=== PATIENT | male | born 1935 | race Caucasian/White ===

== ENCOUNTER 2017-04-14 00:07 | Emergency (ER) | payer MEDICARE, OTHER ==
[~2017-04-14] VITALS: Ht 185.4 cm; Wt 77.1 kg
[~2017-04-14 00:07] MED LIST: ACE3 PO; ACET-3017 PO; ALP1 PO; ALP5; ALPR-448 PO; AMOX-362 PO; ASP325 PO; ASPI-757 PO; ASPI81TA94 PO; ATE50 PO; ATEN-65 PO; AUG875 PO; AZIT-17 PO; BAC10 PO; BACL-1 PO; BACL-51; BACL-51 PO; CARB-83 PO; CEP500 PO; CEPH500T7 PO; CLI150 PO; DICL100G39 TOP; DOCU-416 PO; DULO60CA51 PO; FLU IM; FLU10 PO; FLU20 PO; FLU45SYR17 IM; FLU45SYR25 IM ONLY; FLUO-202 PO; FLUT16SP19 NS; GAB100 PO; GABA-547 PO; GABEPENTIN; HYDR-317 PEG; HYDR-4309 PO; HYDR1CAP PO; HYDR2TAB4 PO; HYDR2TAB42 PO; IBU600 PO; KET10 PO; LOR5/325 PO; OXYC1CAP42 PO; OXYGEN INH; OXYGENHOME INH; PAN40 PO; PANT40TA65 PO; PER PO; PNEU0.5D3 IM; PRE10 PO; PRED-314 PO; RIVA10TA PO; RIVA20TA PO; ZOL5; ZOL5 PO; ZOLP-358 PO; [UNRECOGNIZED DRUG - OTHER]; [UNRECOGNIZED DRUG - OTHER] AD
[2017-04-14] MEDS ORDERED: DICYCLOMINE HCL 10 MG CAP PO ONE (00:35)
[2017-04-14 01:07] LABS: PLATELET COUNT, AUTOMATED 155 K/uL (150-450)
--- NOTE | 2017-04-14 01:50 | RADIOLOGY IMAGING REPORT ---
[facility] PATIENT NAME: Stanton Wells : 1935 MR: [id number] V: [id number] EXAM DATE: ORDERING PHYSICIAN: OCTAVIANO FITZGERALD TECHNOLOGIST: Location: [facility] [place] Patient: Stanton Wells : 1935 Visit/Account:[id number] Date of Sevice: 04/14/2017 ACUTE ABDOMEN SERIES 3 VIEW HISTORY: Left upper quadrant abdominal pain. History of constipation. Has been constipated for the pa st 2 days. COMPARISON: 11/11/2015 and studies dating to 08/16/2006. TECHNIQUE: PA upright view of the chest, AP supine and AP upright views of the abdomen. Chest: The lungs are clear. There is an implanted cardiac device projecting over the left side of the heart that has an appearance consistent with a leadless pacemaker. The cardiac and mediastinal silho uettes are within normal limits. There is mild calcification of the aortic arch. There is mild degene rative change of the thoracic spine. Abdomen: There are numerous surgical clips in the pelvis, consistent with prostatectomy. The distribu tion of bowel gas is normal, with bowel in all four quadrants as well as centrally. No free air. No d ilated loops of bowel. There is gaseous distention of colon. There is moderate stool in the cecum and proximal ascending colon. There is moderate degenerative change of the spine. IMPRESSION: 1. No acute cardiopulmonary process. 2. Unremarkable bowel gas pattern without obstruction. There is a moderate to large amount of stool i n the cecum and proximal ascending colon. Report Dictated By: Jocelin Gregory at 04/14/2017 1:41 AM Report E-Signed By: Jocelin Gregory at 04/14/2017 1:45 AM WSN:[id number]
[2017-04-14] MEDS ORDERED: TAMS0.4C25 PO (02:17)
[2017-04-14] MEDS ORDERED: DICY-42 PO (02:17)
--- NOTE | 2017-04-14 02:18 | ER Report ---
History and Physical Time Seen By MD: 00:05 Hx. of Stated Complaint: PT SEEN ON FOR UTI. THAT IS BETTER BUT HE IS NOW HAVING LEFT LOWER QUAD PAIN. STARTED ABOUT 1999. FEELS LIKE GAS OR CONSTIPATION. HPI/ROS CHIEF COMPLAINT: Abdominal pain, constipation HISTORY OF PRESENT ILLNESS: 81-year-old recently treated here for hematuria and suspected UTI CT at last visit presents with left midabdominal pain just adjacent to the umbilicus nonmigrating nonradiating crampy in nature and started tonight just a few hours prior to arrival. No vomiting. No diarrhea. Last bowel movement was yesterday and some small hard stools. No bloody stools or black stools. No fevers chills nausea or vomiting.. REVIEW OF SYSTEMS: Respiratory: No cough, no dyspnea. Cardiovascular: No chest pain, no palpitations. Gastrointestinal: No vomiting, no abdominal pain. Musculoskeletal: No back pain. Allergies: Coded Allergies: No Known Drug Allergies (Verified , 04/14/17) Home Meds Active Scripts Cephalexin 500 Mg Tab (KEFLEX 500 MG TAB) 500 Mg Tablet, 500 MG PO Q6H, #28 TAB 0 Refills TAKE ONE TABLET BY MOUTH EVERY SIX HOURS Prov:FABRICE MAC MD 04/10/17 Fluticasone Prop 50 Mcg Ns (FLONASE 50 MCG NS) 16 Gm [place].susp, 2 SPRAYS NS QDAY, #1 BOT 6 Refills Prov:ROBIN SOLIS MD 03/15/17 Pantoprazole Sodium (PANTOPRAZOLE SODIUM) 40 Mg Tablet.dr, 1 TAB PO QDAY, #30 TAB.SR 1 Refill Prov:ROBIN SOLIS MD 03/07/17 Fluoxetine Hcl (PROZAC) 20 Mg Capsule, 1 TAB PO QDAY, #90 CAPSULE 3 Refills Prov:ROBIN SOLIS MD 02/09/16 Reported Medications Docusate Sodium (COLACE) 100 Mg Capsule, 100 MG PO PRN, CAPSULE 02/26/16 Oxygen (OXYGEN) Inha, 2 L INH HS, L 01/14/15 Baclofen (BACLOFEN) 20 Mg Tablet, 1 TAB PO Q6H Y for trigeminal neuralgia pain, #15 TAB 01/14/15 Carbamazepine (TEGRETOL XR) 200 Mg Tab.er.12h, 1 TAB PO TID 01/16/14 Gabapentin (GABAPENTIN) 100 Mg Capsule, 600 MG PO TID, CAPSULE 01/16/14 Discontinued Reported Medications Rivaroxaban 10 MG (Xarelto 10 MG) Unknown Strength Tablet, 20 MG PO QDAY 11/29/16 Hydrocodone Bit/Acetaminophen (NORCO 5-325 TABLET) 1 Each Tablet, 1-2 TAB PO Q4- 6H Y for PAIN, #45 TAB 04/12/16 Alprazolam 0.5 Mg Tab (ALPRAZOLAM 0.5 MG TAB) 0.5 Mg Tablet, 1 TAB PO BID Y for anxiety, TAB 01/16/14 Discontinued Scripts Diclofenac Sodium 1% Gel (VOLTAREN 1% GEL) 100 Gm Gel..gram., 2 G TOP QID Y for PAIN, #1 TUBE 0 Refills Prov:AMBER ROYAL APRN [employer]AKER TENDER-C 11/07/14 Hx Smoking: Yes Smoking Status: Former Smoker Exposure to Second Hand Smoke?: No Hx Substance Use Disorder: No Hx Alcohol Use: No Constitutional Vital Sign - Last 24 Hours 04/14/17 04/14/17 04/14/17 04/14/17 00:13 00:15 00:45 00:52 Temp 98.8 Pulse 65 61 62 Resp 14 B/P (MAP) 154/76 137/75 (95) Pulse Ox 77 85 97 O2 Delivery Room Air 04/14/17 04/14/17 04/14/17 01:20 01:30 01:49 Pulse 63 Resp 16 B/P (MAP) 138/84 (102) 139/80 (99) 139/80 (99) Pulse Ox 93 O2 Delivery Nasal Cannula O2 Flow Rate 2 Physical Exam General Appearance: The patient is alert, has no immediate need for airway protection and no signs of toxicity. No acute distress Eyes: Pupils equal and round no pallor or injection. ENT, Mouth: Mucous membranes are moist. Respiratory: There are no retractions, lungs are clear to auscultation. Cardiovascular: Regular rate and rhythm. No murmurs gallops or rubs Gastrointestinal: Abdomen is soft and non tender, no masses, bowel sounds normal. Neurological: Gross normal neuro exam Skin: Warm and dry, no rashes. Musculoskeletal: Neck is supple non tender. Extremities are nontender, nonswollen and have full range of motion. No edema DIFFERENTIAL DIAGNOSIS: After history and physical exam differential diagnosis was considered for constipation, stool Berdan, fecal impaction, kidney stone, bladder infection, kidney infection, no signs of sepsis Medical Decision Making Data Points Result Diagram: 04/14/173904/14/1739 Laboratory Hematology Test 04/14/17 00:40 Red Blood Count 4.19 M/uL (4.00-5.60) Mean Corpuscular Volume 98.6 fL (80.0-96.0) Mean Corpuscular Hemoglobin 34.6 pg (26.0-33.0) Mean Corpuscular Hemoglobin Concent 35.1 g/dL (32.0-36.0) Red Cell Distribution Width 14.3 % (11.5-14.5) Mean Platelet Volume 7.2 fL (7.2-11.1) Neutrophils (%) (Auto) 79.5 % (39.4-72.5) Lymphocytes (%) (Auto) 12.6 % (17.6-49.6) Monocytes (%) (Auto) 6.6 % (4.1-12.4) Eosinophils (%) (Auto) 0.7 % (0.4-6.7) Basophils (%) (Auto) 0.6 % (0.3-1.4) Nucleated RBC Relative Count (auto) 0.1 /100WBC Neutrophils # (Auto) 3.4 K/uL (2.0-7.4) Lymphocytes # (Auto) 0.5 K/uL (1.3-3.6) Monocytes # (Auto) 0.3 K/uL (0.3-1.0) Eosinophils # (Auto) 0.0 K/uL (0.0-0.5) Basophils # (Auto) 0.0 K/uL (0.0-0.1) Nucleated RBC Absolute Count (auto) 0.00 K/uL Urine Color Red Urine Clarity Clear Urine pH 6.0 pH (4.8-9.5) Urine Specific [place] 1.005 Urine Protein 100 mg/dL (NEGATIVE) Urine Glucose (UA) 50 mg/dL (NEGATIVE) Urine Ketones Negative mg/dL (NEGATIVE) Urine Blood Large (NEGATIVE) Urine Nitrite Negative (NEGATIVE) Urine Bilirubin Negative (NEGATIVE) Urine Urobilinogen Negative mg/dL (0.2-1.9) Urine Leukocyte Esterase Negative (NEGATIVE) Urine RBC 62 /HPF (0-2/HPF) Urine WBC 6 /HPF (0-5/HPF) Urine Squamous Epithelial Cells None /LPF (</=FEW) Urine Bacteria Few /HPF (NONE-FEW) Urine Mucus None /HPF (NONE-FEW) Sodium Level 137 mmol/L (137-145) Potassium Level 3.7 mmol/L (3.5-5.0) Chloride Level 100 mmol/L (98-107) Carbon Dioxide Level 30 mmol/L (22-30) Blood Urea Nitrogen 20 mg/dl (9-21) Creatinine 0.90 mg/dl (0.66-1.25) Glomerular Filtration Rate Calc > 60.0 Random Glucose 100 mg/dl (75-110) Calcium Level 8.3 mg/dl (8.4-10.2) Total Bilirubin 0.6 mg/dl (0.2-1.3) Aspartate Amino Transf (AST/SGOT) 26 U/L (0-35) Alanine Aminotransferase (ALT/SGPT) 31 U/L (0-56) Alkaline Phosphatase 90 U/L (0-126) Total Protein 6.3 gm/dl (6.3-8.2) Albumin 3.6 g/dl (3.5-5.0) Lipase 111 U/L (23-300) Chemistry Test 04/14/17 00:40 White Blood Count 4.3 k/uL (4.5-11.0) Red Blood Count 4.19 M/uL (4.00-5.60) Hemoglobin 14.5 g/dL (14.0-18.0) Hematocrit 41.3 % (42.0-52.0) Mean Corpuscular Volume 98.6 fL (80.0-96.0) Mean Corpuscular Hemoglobin 34.6 pg (26.0-33.0) Mean Corpuscular Hemoglobin Concent 35.1 g/dL (32.0-36.0) Red Cell Distribution Width 14.3 % (11.5-14.5) Platelet Count 155 K/uL (150-450) Mean Platelet Volume 7.2 fL (7.2-11.1) Neutrophils (%) (Auto) 79.5 % (39.4-72.5) Lymphocytes (%) (Auto) 12.6 % (17.6-49.6) Monocytes (%) (Auto) 6.6 % (4.1-12.4) Eosinophils (%) (Auto) 0.7 % (0.4-6.7) Basophils (%) (Auto) 0.6 % (0.3-1.4) Nucleated RBC Relative Count (auto) 0.1 /100WBC Neutrophils # (Auto) 3.4 K/uL (2.0-7.4) Lymphocytes # (Auto) 0.5 K/uL (1.3-3.6) Monocytes # (Auto) 0.3 K/uL (0.3-1.0) Eosinophils # (Auto) 0.0 K/uL (0.0-0.5) Basophils # (Auto) 0.0 K/uL (0.0-0.1) Nucleated RBC Absolute Count (auto) 0.00 K/uL Urine Color Red Urine Clarity Clear Urine pH 6.0 pH (4.8-9.5) Urine Specific [place] 1.005 Urine Protein 100 mg/dL (NEGATIVE) Urine Glucose (UA) 50 mg/dL (NEGATIVE) Urine Ketones Negative mg/dL (NEGATIVE) Urine Blood Large (NEGATIVE) Urine Nitrite Negative (NEGATIVE) Urine Bilirubin Negative (NEGATIVE) Urine Urobilinogen Negative mg/dL (0.2-1.9) Urine Leukocyte Esterase Negative (NEGATIVE) Urine RBC 62 /HPF (0-2/HPF) Urine WBC 6 /HPF (0-5/HPF) Urine Squamous Epithelial Cells None /LPF (</=FEW) Urine Bacteria Few /HPF (NONE-FEW) Urine Mucus None /HPF (NONE-FEW) Glomerular Filtration Rate Calc > 60.0 Calcium Level 8.3 mg/dl (8.4-10.2) Total Bilirubin 0.6 mg/dl (0.2-1.3) Aspartate Amino Transf (AST/SGOT) 26 U/L (0-35) Alanine Aminotransferase (ALT/SGPT) 31 U/L (0-56) Alkaline Phosphatase 90 U/L (0-126) Total Protein 6.3 gm/dl (6.3-8.2) Albumin 3.6 g/dl (3.5-5.0) Lipase 111 U/L (23-300) Urinalysis Test 04/14/17 00:40 Urine Color Red Urine Clarity Clear Urine pH 6.0 pH (4.8-9.5) Urine Specific [place] 1.005 Urine Protein 100 mg/dL (NEGATIVE) Urine Glucose (UA) 50 mg/dL (NEGATIVE) Urine Ketones Negative mg/dL (NEGATIVE) Urine Blood Large (NEGATIVE) Urine Nitrite Negative (NEGATIVE) Urine Bilirubin Negative (NEGATIVE) Urine Urobilinogen Negative mg/dL (0.2-1.9) Urine Leukocyte Esterase Negative (NEGATIVE) Urine RBC 62 /HPF (0-2/HPF) Urine WBC 6 /HPF (0-5/HPF) Urine Squamous Epithelial Cells None /LPF (</=FEW) Urine Bacteria Few /HPF (NONE-FEW) Urine Mucus None /HPF (NONE-FEW) ED Course/Re-evaluation ED Course Previous CT scan report reviewed and 5 mm renal stone was seen. This was discussed with the patient who was unaware. I think this accounts for the continued blood in his urine. Stone not seen on KUB. KUB negative for obstruction. Dilated loops consistent with mild ileus this was discussed with the patient's who agrees to continue a bowel regimen limit narcotic use which he did not for 15 years and follow-up with urologist for further care if the necessary rise primary care physician. Bentyl improved his pain here. He is going to use docusate sodium and Senokot fibrinous diarrhea and good hydration to prevent ongoing constipation. Decision to Disposition Date: Apr 14, 2017 Decision to Disposition Time: 02:14 Depart Departure Latest Vital Signs Vital Signs Date Time Temp Pulse Resp B/P (MAP) Pulse Ox O2 Delivery O2 Flow Rate FiO2 04/14/17 01:49 63 16 139/80 (99) 93 Nasal Cannula 2 04/14/17 00:13 98.8 Impression: Primary Impression: Renal stone Additional Impression: Constipation Condition: Improved Disposition: HOME OR SELF-CARE Referrals: ROBIN SOLIS MD (PCP) New Scripts Tamsulosin Hcl (FLOMAX) 0.4 Mg Cap.er.24h 0.4 MG PO QDAY, #14 CAP 0 Refills Prov: OCTAVIANO FITZGERALD MD 04/14/17 Dicyclomine Hcl (BENTYL) 10 Mg Capsule 20 MG PO QID Y for cramps for 10 Days, #30 CAPSULE Prov: OCTAVIANO FITZGERALD MD 04/14/17 Problem Qualifiers Additional Impression: Constipation Constipation type: drug induced constipation Qualified Codes: K59.03 - Drug induced constipation OCTAVIANO FITZGERALD MD Apr 14, 2017 02:18
[2017-04-14 02:34] VITALS: BP 128/88
== END 2017-04-14 02:49 | disposition home or self-care (01) ==
LOC: ER 00:15
DX: N20.0 Calculus of kidney (principal); K59.03 Drug induced constipation
CPT/HCPCS: 74022; 81001; 83690; 85025; 87088; 99284; A9270; 82040; 82247; 82310; 82374; 82435; 82565; 82947; 84075; 84132; 84155; 84295; 84450; 84460; 84520

== ENCOUNTER → 2017-04-19 | Outpatient (CLI) | payer MEDICARE, OTHER ==
[~2017-04-19] MED LIST changes: +DICY-42 PO; +IOPAMIDOL 76% 50 ML INFUS BTL 50 ML ONE; +IOPAMIDOL 76% 75 ML INFUS BTL 75 ML ONE; +NS 0.9% 50 ML VIAL 50 ML ONE; +TAMS0.4C25 PO
--- NOTE | 2017-04-19 16:58 | RADIOLOGY IMAGING REPORT ---
FACILITY: [facility] - [place], [place] PATIENT NAME: Stanton Wells : 1935 MR: [id number] V: [id number] EXAM DATE: ORDERING PHYSICIAN: ANJUM CHIN TECHNOLOGIST: [facility] Patient: Stanton Wells : 1935 Visit/Account:[id number] Date of Sevice: 04/19/2017 ABDOMEN/PELVIS W/WO CONTRAST HISTORY: Hematuria, stones, history of prostate cancer TECHNIQUE: Axial images acquired through the abdomen/pelvis both with and without IV contrast.. Arcadio nal and sagittal reformatting also performed. Dose Lowering Technique One of the following dose optimization techniques was utilized in the performance of this exam: Autom ated exposure control; adjustment of the mA and/or kV according to the patient's size; or use of an i terative reconstruction technique. Specific details can be referenced in the facility's radiology C T exam operational policy. CONTRAST: 125 mL Isovue-370 COMPARISON: April 10, 2017 FINDINGS: Visualized lung bases: There are calcified granulomas in the right lower lobe Hepatobiliary: There are multiple tiny hypodensities seen in the liver which may represent cysts alt katherin are too small to characterize. . Tiny gallstones noted within the gallbladder although no patrick dence of biliary ductal dilatation Spleen: Calcified granulomas Adrenals: There is mild thickening of the left adrenal gland similar to the prior study. Pancreas: Negative. Kidneys ureters and bladder: Tiny hypodensities in both kidneys are too small to characterize. There is a 1 mm calcification lower pole of the right kidney. There is a 2 mm calcination lower pole rené x of the left kidney and a 5 mm calcination upper pole calyx of the left kidney. No evidence of hydr onephrosis or hydroureter ureters are not completely opacified with contrast although no definite les ions are identified. The bladder is partially decompressed and not ideally evaluated. There appears to be marked irregular trabeculation of the bladder wall. Genitalia: There appears to been a prostatectomy. GI: Negative. Vessels/spaces/nodes: Mild to moderate vascular calcifications are present Bones/soft tissues: No aggressive appearing bone lesions are seen. There are extensive spondylotic changes lumbar spine. Additional findings: None pertinent. IMPRESSION: There are nonobstructing calculi seen in both renal collecting systems The bladder is partially decompressed and not ideally evaluated although there appears to be marked i rregular trabeculation of the bladder wall. Evidence for prior granulomatous process Cholelithiasis although no evidence for ductal dilatation Tiny hypodensities in the liver and both kidneys may represent cysts although are too small to charac terize Report Dictated By: Maritza Holder MD at 04/19/2017 4:32 PM Report E-Signed By: Maritza Holder MD at 04/19/2017 4:53 PM WSN:[email or web address]
== END ==
LOC: CT 10:06
PROVIDERS: ATTEND Urology
DX: N20.0 Calculus of kidney (principal); K80.80 Other cholelithiasis without obstruction; R93.2 Abnormal findings on diagnostic imaging of liver and biliary tract
CPT/HCPCS: J7050; Q9967; 74178

== ENCOUNTER → 2017-05-02 | Outpatient (CLI) | payer MEDICARE, OTHER ==
[~2017-05-02] MED LIST changes: +ALPR-429 PO; +DICY10AM2 IM; -IOPAMIDOL 76% 50 ML INFUS BTL 50 ML ONE; -IOPAMIDOL 76% 75 ML INFUS BTL 75 ML ONE; -NS 0.9% 50 ML VIAL 50 ML ONE; +ZOLP-350 PO
== END ==
LOC: RESP 16:23
PROVIDERS: ATTEND Internal Medicine
DX: Z02.9 Encounter for administrative examinations, unspecified (principal)

== ENCOUNTER 2017-05-04 00:23 | Day surgery (SDC) | payer MEDICARE, OTHER ==
--- NOTE | 2017-05-02 16:27 | EKG ---
FACILITY: [facility] PATIENT NAME: CARMEN PERRY : [id number] MR: [id number] V: [id number] EXAM DATE: ORDERING PHYSICIAN: ROBIN SOLIS TECHNOLOGIST: VENKATESH Test Reason : PREOP Blood Pressure : / mmHG Vent. Rate : 079 BPM Atrial Rate : 055 BPM P-R Int : 184 ms QRS Dur : 100 ms QT Int : 438 ms P-R-T Axes : 065 -53 059 degrees QTc Int : 502 ms Sinus bradycardia with frequent premature ventricular complexes Left axis deviation Nonspecific ST and T wave abnormality Prolonged QT Abnormal ECG No previous ECGs available Referred By: Confirmed By:
--- NOTE | 2017-05-03 18:56 | HISTORY AND PHYSICAL ---
DATE OF ADMISSION: May 04, 2017 CHIEF COMPLAINT Kidney stones. HISTORY OF PRESENT ILLNESS Patient is an 82-year-old white male who had an episode of gross painless hematuria on April 10, 2017. Evaluation with a CT urogram revealed three left kidney stones, the largest measuring 5 x 3. Office cystoscopy performed was normal. The patient's episode of hematuria was only once and resolved after the patient stopped his Xarelto. He has had no further episodes of gross hematuria and his urinalysis has been normal microscopically since that time. His kidney stones were discussed with options of watch-waiting versus treatment and the patient elected to undergo extracorporeal shock wave lithotripsy with possible ureteroscopy as indicated. PAST MEDICAL HISTORY * AFib. * Prostate cancer with currently no evidence of disease. * Hypertension. * Sleep apnea. * Pulmonary hypertension. * Polycythemia. * Trigeminal neuralgia. PAST SURGICAL HISTORY * Left knee surgery. * Radical retropubic prostatectomy in 1996. * Tonsillectomy. * Bilateral inguinal hernia. * Laminectomy. ALLERGIES No known drug allergies. CURRENT MEDICATIONS * Flonase. * Pantoprazole. * Prozac. * Xarelto. * Colace. * Oxygen. * Baclofen. * Tegretol. * Gabapentin. SOCIAL HISTORY Patient is retired. He has a remote smoking history. REVIEW OF SYSTEMS Patient denies nausea, vomiting, abdominal pain, change in bowel habits, chest pain, productive cough or fevers, chills. PHYSICAL EXAMINATION GENERAL: Patient is a well-developed, well-nourished white male in no acute distress. HEENT: Normocephalic, atraumatic. CHEST: Clear to auscultation bilaterally. CARDIOVASCULAR: Regular rate and rhythm. ABDOMEN: Soft, nontender. No masses are palpated. GENITOURINARY: Exam is deferred to the OR. EXTREMITIES: Without clubbing, cyanosis or edema. NEUROLOGIC: Exam is nonfocal. IMPRESSION An 82-year-old white male with history of left kidney stones and gross hematuria while on Xarelto. PLAN We will perform left extracorporeal shock wave lithotripsy with possible ureteroscopy. [facility]
[~2017-05-04] VITALS: Ht 185.4 cm; Wt 77.1 kg
[2017-05-04 07:45] VITALS: BP 145/80
[2017-05-04] MEDS ORDERED: ceFAZolin 1 GM VIAL IVP ONE (08:00)
[2017-05-04] MEDS ORDERED: NORMOSOL R SOLN(*) 1000 ML BAG 1,000 ML IV PRN (08:00)
[2017-05-04] MEDS ORDERED: ceFAZolin(*) 1 GM VIAL 1 GM in NS(*) 0.9% 100 ML ADDVANT BAG 100 ML IV ONE (08:00)
[2017-05-04] MEDS ORDERED: MIDAZOLAM 2 MG/2 ML VIAL IVP ONE (08:00)
[2017-05-04] MEDS ORDERED: LIDOCAINE/SOD BICARB 8.4% SYR ID ONE (08:00)
[2017-05-04] MEDS ORDERED: FAMOTIDINE 20 MG TAB PO ONE (08:00)
[2017-05-04 08:05] LABS: INR 1.1
--- NOTE | 2017-05-04 09:38 | RADIOLOGY IMAGING REPORT ---
FACILITY: [facility] - [place] PATIENT NAME: Stanton Wells : 1935 MR: [id number] V: [id number] EXAM DATE: ORDERING PHYSICIAN: ANJUM CHIN TECHNOLOGIST: Location: [facility] Patient: Stanton Wells : 1935 Visit/Account:[id number] Date of Sevice: 05/02/2017 ABDOMEN PELVIS ESWL CYSTO W/O HISTORY: preop order TECHNIQUE: Axial images acquired through the abdomen/pelvis. Coronal and sagittal reformatting also performed. No IV contrast administered. COMPARISON: April 19, 2017 FINDINGS: Visualized lung bases: Negative. Hepatobiliary: Tiny hypodensities again seen within the liver although too small to characterize. T his cholelithiasis although no evidence of biliary ductal dilatation. Spleen: Calcified granulomas Adrenals: Negative. Pancreas: Negative. Kidneys ureters and bladder:1 mm calcification lower pole the right kidney may be intraparenchymal. 2 mm calcification lower pole calyx of left kidney again seen.. A 5 mm calcification upper pole adebayo yx of the left kidney also appears unchanged no new renal calculi identified. There is no evidence o f hydronephrosis or hydroureter. Small renal hypodensities again noted bilaterally although too smal l to characterize. Genitalia: There appears to been a prostatectomy GI: Negative. Vessels/spaces/nodes: Mild to moderate vascular calcifications Bones/soft tissues: Extensive spondylotic changes lumbar spine. No aggressive appearing bone lesion s are seen. Additional findings: None pertinent. IMPRESSION: There is nonobstructing bilateral nephrolithiasis Evidence for prior cranium is process Cholelithiasis although no evidence of biliary ductal dilatation Tiny hypodensities in the liver and kidneys are too small to characterize Report Dictated By: Maritza Holder MD at 05/04/2017 8:53 AM Report E-Signed By: Maritza Holder MD at 05/04/2017 9:33 AM WSN:[email or web address]
[2017-05-04] MEDS ORDERED: fentaNYL CITR 100 MCG/2 ML AMP ONE (09:59)
[2017-05-04] MEDS ORDERED: ONDANSETRON 4 MG/2 ML VIAL ONE (10:21)
[2017-05-04] MEDS ORDERED: DEXAMETHASONE SOD PHOS 10MG/ML ONE (10:21)
[2017-05-04] MEDS ORDERED: PROPOFOL EMUL(*) 10MG/ML 20 ML 20 ML ONE (10:21)
[2017-05-04] MEDS ORDERED: GLYCOPYRROLATE 0.2 MG/ML SDV ONE (10:21)
[2017-05-04] MEDS ORDERED: TAMS0.4C25 PO (10:50)
[2017-05-04] MEDS ORDERED: HYDR-4309 PO (10:51)
[2017-05-04] MEDS ORDERED: DOCU-416 PO (10:51)
--- NOTE | 2017-05-04 15:57 | OPERATIVE REPORT 1 ---
EVENT DATE: May 04, 2017 SURGEON: Leo Bishop MD ANESTHESIOLOGIST: Nadeem López MD ANESTHESIA: General anesthetic. PREOPERATIVE DIAGNOSIS Left renal calculi. POSTOPERATIVE DIAGNOSIS Left renal calculi. PROCEDURES PERFORMED 1. Left upper pole extracorporeal shock wave lithotripsy of 6 mm stone. 2. Left lower pole extracorporeal shock wave lithotripsy of 4 mm stone. ESTIMATED BLOOD LOSS Minimal. INTRAVENOUS FLUIDS Crystalloid. DRAINS None. COMPLICATIONS None. CONDITION The patient was taken to the recovery room awake and in stable condition. STATEMENT OF MEDICAL NECESSITY The patient is a 81-year-old white gentleman who was noted to have some small kidney stones approximately 10 years ago. He recently had an episode of gross hematuria. On his workup, he was noted to have increasing size of these stones in the left system. He had a 6 mm upper pole stone and a 4 mm lower pole stone. He has opted for urologic intervention with lithotripsy and/or ureteroscopy. CONSENT The specific risks and benefits were discussed including bleeding, infection, damage to adjacent structures, failure to fragment stone completely and/or pass the fragments with need for secondary procedure. The operative consent is signed and on the chart. DESCRIPTION OF OPERATION PERFORMED The patient was brought to the operating room. After general anesthetic was obtained, he was placed supine on the lithotripsy table. Attention was first directed toward the upper pole stone. It was visualized in two-plane fluoroscopy and placed in the lithotripsy crosshairs. Treatment was begun at a power setting of 2 and gradually increased to a power setting of 3 over the first 300 shocks. A three-minute pause was then performed, and then the treatment was resumed. He received a total of 1500 shocks to this 6 mm left upper pole stone. Intermittent two-plane fluoroscopy was used to ensure the crosshairs remained on the stone until a fragment pile throughout treatment. The power was gradually increased to 8.5 over the course of the 1500 shock treatment. Following treatment of the upper pole stone, attention was directed to the lower pole stone. It was also visualized with two-plane fluoroscopy and placed in the lithotripsy crosshairs. Treatment was begun at a power setting of 3.5 and gradually increased to a power setting of 8.5 over the course of 1500 shocks. Again, two-plane intermittent fluoroscopy was used to ensure the crosshairs remained on the stone until a fragment pile. At the conclusion of the treatment, no significant fragments could be identified. He received a total of 3000 shocks to the left kidney. He was awakened in the operating room and taken to the recovery area in stable condition. PLAN The plan will be to allow the patient to be discharged home today on Flomax, [place], and Colace. He is to start the head-down protocol in one to two days. We will plan to see him in the Urology Clinic in approximately eight weeks with a followup low-dose CT as well to evaluate treatment results. The patient is also instructed to restart his Xarelto in 36 hours if his urine remains clear. MTDD
== END 2017-05-04 12:04 | disposition home or self-care (01) ==
LOC: OR 00:23
PROVIDERS: ATTEND Urology
DX: N20.0 Calculus of kidney (principal); I10 Essential (primary) hypertension; Z85.46 Personal history of malignant neoplasm of prostate; G47.33 Obstructive sleep apnea (adult) (pediatric); J44.9 Chronic obstructive pulmonary disease, unspecified; K21.9 Gastro-esophageal reflux disease without esophagitis; I48.2 Chronic atrial fibrillation
CPT/HCPCS: 36415; 50590; 74176; 85610; J0690; J1100; J2250; J2405; J2704; J3010; J3490

== ENCOUNTER → 2017-06-16 | Outpatient (CLI) | payer MEDICARE, OTHER ==
[2017-06-16 12:34] LABS: PLATELET COUNT, AUTOMATED 177 K/uL (150-450)
--- NOTE | 2017-06-16 14:08 | RADIOLOGY IMAGING REPORT ---
FACILITY: [facility] - [place] PATIENT NAME: Stanton Wells : 1935 MR: [id number] V: [id number] EXAM DATE: ORDERING PHYSICIAN: ROBIN SOLIS TECHNOLOGIST: Location: [facility] Patient: Stanton Wells : 1935 Visit/Account:[id number] Date of Sevice: 06/16/2017 Exam type: CHEST PA AND LAT History: Sinusitis, sleep apnea, hypertension Comparison: January 20, 2016. Findings: The lungs are free of acute effusions, infiltrates or edema. The cardiac silhouette is normal in siz e. The trachea is in midline. There is a cardiac monitoring device projecting over the anterior asp ect of the left mid thorax. There are mild spondylotic changes of the thoracic spine. IMPRESSION: 1. No acute cardiopulmonary process is seen Report Dictated By: Maritza Holder MD at 06/16/2017 2:02 PM Report E-Signed By: Maritza Holder MD at 06/16/2017 2:04 PM DONGN:[email or web address]
== END ==
LOC: LAB 11:57
PROVIDERS: ATTEND Internal Medicine
DX: Z95.818 Presence of other cardiac implants and grafts (principal); M47.894 Other spondylosis, thoracic region; J32.9 Chronic sinusitis, unspecified; G47.33 Obstructive sleep apnea (adult) (pediatric); I10 Essential (primary) hypertension
CPT/HCPCS: 36415; 71046; 82040; 82247; 82310; 82374; 82435; 82565; 82947; 84075; 84132; 84155; 84295; 84450; 84460; 84520; 85025

== ENCOUNTER 2017-08-03 00:21 | Day surgery (SDC) | payer MEDICARE, OTHER ==
[~2017-08-03] VITALS: Ht 180.3 cm; Wt 73.0 kg
[2017-08-03] MEDS ORDERED: PROPOFOL EMUL(*) 10MG/ML 20 ML 20 ML ONE ×2 (07:29→09:55)
--- NOTE | 2017-08-03 07:29 | Post Operative Progress Note ---
Post Operative Progress Note Date: Aug 03, 2017 Time: 10:15 Surgeon: sharan Anesthesia: dr ulloa Pre-Op Diagnosis: history of polyps Post-Op Diagnosis: diverticulosis Procedure(s): colonoscopy MANNIE TRAVIS MD Aug 03, 2017 07:29
--- NOTE | 2017-08-03 07:30 | Short(Outpt) Discharge Summary ---
Discharge Summary Reason for Hosp/Final Diag: (1) Encounter for colonoscopy due to history of adenomatous colonic polyps Hospital Course & Plan: sigmoid diverticulosis Departure Discharge to: Home Discharge Instructions Home Meds Active Scripts Pantoprazole Sodium (PANTOPRAZOLE SODIUM) 40 Mg Tablet.dr, 1 TAB PO QDAY, #90 TAB.SR 4 Refills Prov:ROBIN SOLIS MD 06/08/17 Fluticasone Prop 50 Mcg Ns (FLONASE 50 MCG NS) 16 Gm [place].susp, 2 SPRAYS NS QDAY, #1 BOT 6 Refills Prov:ROBIN SOLIS MD 03/15/17 Fluoxetine Hcl (PROZAC) 20 Mg Capsule, 1 TAB PO QDAY, #90 CAPSULE 3 Refills Prov:ROBIN SOLIS MD 02/09/16 Reported Medications Hydrocodone Bit/Acetaminophen (NORCO 5-325 TABLET) 1 Each Tablet, 1-2 EACH PO Q6H Y for PAIN, #20 TAB 05/04/17 Docusate Sodium (COLACE) 100 Mg Capsule, 100 MG PO BID, #30 CAPSULE 05/04/17 Aspirin (ASPIRIN) 81 Mg Tab.chew, 81 MG PO QDAY, TAB.CHEW 05/02/17 Alprazolam (XANAX) 0.5 Mg Tablet, 1 TAB PO BID Y for ANXIETY, TAB 05/02/17 Rivaroxaban 20 Mg (XARELTO 20 MG) 20 Mg Tablet, 20 MG PO QDAY, TAB 05/02/17 Oxygen (OXYGEN) Inha, 2 L INH HS, L 01/14/15 Baclofen (BACLOFEN) 20 Mg Tablet, 1 TAB PO Q6H Y for trigeminal neuralgia pain, #15 TAB 01/14/15 Carbamazepine (TEGRETOL XR) 200 Mg Tab.er.12h, 1 TAB PO TID 01/16/14 Gabapentin (GABAPENTIN) 100 Mg Capsule, 600 MG PO TID, CAPSULE 01/16/14 Discontinued Reported Medications Tamsulosin Hcl (FLOMAX) 0.4 Mg Cap.er.24h, 0.4 MG PO QDAY, #30 CAP 05/04/17 Dicyclomine Hcl (BENTYL) 10 Mg/1 Ml Ampul, 2 G IM QID Y for PAIN 05/02/17 Diet: High Fiber Activity: As Tolerated MANNIE TRAVIS MD Aug 03, 2017 07:30
[2017-08-03] MEDS ORDERED: LIDOCAINE/SOD BICARB 8.4% SYR ID ONE (09:00)
[2017-08-03] MEDS ORDERED: NORMOSOL R SOLN(*) 1000 ML BAG 1,000 ML IV PRN (09:00)
[2017-08-03 09:13] VITALS: BP 158/83
[2017-08-03 10:08] VITALS: BP 110/63
[2017-08-03 10:15] VITALS: BP 110/62
[2017-08-03 10:45] VITALS: BP 133/75
[2017-08-03 10:50] VITALS: BP 114/60
--- NOTE | 2017-08-03 19:28 | OPERATIVE REPORT 1 ---
EVENT DATE: August 03, 2017 SURGEON: Orion Botello MD ANESTHESIOLOGIST: Buck Manrique MD ANESTHESIA: Sedation. PREOPERATIVE DIAGNOSIS Personal history of polyps. POSTOPERATIVE DIAGNOSES 1. Sigmoid diverticulosis. 2. Otherwise normal examination. PROCEDURE PERFORMED Colonoscopy. DESCRIPTION OF PROCEDURE Patient was placed in the left lateral decubitus position and given intravenous sedation. Rectal exam was performed. No palpable masses were noted. Flexible colonoscope was inserted and advanced to the cecum. He had an excellent bowel prep. The ileocecal valve and base of the cecum were identified. Scope was slowly withdrawn. No mucosal abnormalities were noted in the cecum, right colon , or transverse colon. In the sigmoid colon, he had diverticula. No evidence of diverticulitis. Rectum was normal. Scope was retroflexed. That appeared to be normal. The patient tolerated the procedure well. No apparent complications. Patient probably will not need another colonoscopy because of his age. [facility], [place]
== END 2017-08-03 11:30 | disposition home or self-care (01) ==
LOC: OR 00:21
PROVIDERS: ATTEND Surgery
DX: Z12.11 Encounter for screening for malignant neoplasm of colon (principal); K57.30 Diverticulosis of large intestine without perforation or abscess without bleeding; Z86.010 Personal history of colon polyps
CPT/HCPCS: 00812; G0121; J2704

== ENCOUNTER → 2017-08-22 | Outpatient (CLI) | payer MEDICARE, OTHER ==
--- NOTE | 2017-08-22 11:58 | RADIOLOGY IMAGING REPORT ---
FACILITY: [facility] - [place] PATIENT NAME: Stanton Wells : 1935 MR: [id number] V: [id number] EXAM DATE: ORDERING PHYSICIAN: ANJUM CHIN TECHNOLOGIST: Location: [facility] Patient: Stanton Wells : 1935 Visit/Account:[id number] Date of Sevice: 08/22/2017 ABDOMEN PELVIS ESWL CYSTO W/O HISTORY: Kidney stones TECHNIQUE: Axial images acquired through the abdomen/pelvis. Coronal and sagittal reformatting also performed. No IV contrast administered. Dose Lowering Technique One of the following dose optimization techniques was utilized in the performance of this exam: Autom ated exposure control; adjustment of the mA and/or kV according to the patient's size; or use of an i terative reconstruction technique. Specific details can be referenced in the facility's radiology C T exam operational policy. COMPARISON: May 04, 2017 FINDINGS: Visualized lung bases: Small calcified granulomas are identified in the lower lung [place] Hepatobiliary: Cholelithiasis although no evidence of biliary ductal dilatation. Small hypodensitie s again seen within the liver that are too small to characterize. Spleen: Calcified granulomas Adrenals: Negative. Pancreas: Negative. Kidneys ureters and bladder: 1 mm calcification lower pole the right kidney appears unchanged. Previ ously noted 2 mm calcification lower pole of the left kidney now appears to measure 3 mm. The previo us 5 mm calcification upper pole the left kidney is no longer seen. There is no evidence of hydronep hrosis or hydroureter. No definite calculi seen within the ureters although the distal ureters not i deally evaluated small renal hypodensities again noted two small to characterize bladder wall appears moderately thickened slightly increased when compared the prior study Genitalia: There are numerous clips in the pelvis likely from prior prostatectomy GI: Negative. Vessels/spaces/nodes: There are several small faintly calcified nodules in the left upper quadrant o f abdomen measuring up to 9 mm. These could represent partially calcified lymph nodes there are mild to moderate vascular calcifications Bones/soft tissues: There are extensive spondylotic changes lumbar spine. Additional findings: None pertinent. IMPRESSION: Previously noted 5 mm calcification upper pole left kidney is no longer seen There is nonobstructing nephrolithiasis bilaterally Cholelithiasis although no evidence of biliary ductal dilatation Evidence for prior granulomatous process Additional chronic findings as described Report Dictated By: Maritza Holder MD at 08/22/2017 11:33 AM Report E-Signed By: Maritza Holder MD at 08/22/2017 11:54 AM DONGN:[id number]
== END ==
LOC: CT 10:10
PROVIDERS: ATTEND Urology
DX: N20.0 Calculus of kidney (principal); Z87.442 Personal history of urinary calculi; K80.20 Calculus of gallbladder without cholecystitis without obstruction; R91.8 Other nonspecific abnormal finding of lung field
CPT/HCPCS: 74176

== ENCOUNTER → 2018-05-14 | Outpatient (CLI) | payer MEDICARE, OTHER ==
[~2018-05-14] MED LIST changes: +BENZ200C15 PO; +CYAN20004 PO; +FEXO-67 PO; +FOLI-68 PO; -HYDR-4309 PO; +HYDR-653 PO; +PRED20TA6 PO
[2018-05-14 11:46] LABS: PLATELET COUNT, AUTOMATED 143 K/uL (150-450)
[2018-05-14 12:15] LABS: LDL CHOLESTEROL 64 mg/dl
== END ==
LOC: LAB 11:30
PROVIDERS: ATTEND Internal Medicine
DX: Z12.5 Encounter for screening for malignant neoplasm of prostate (principal); I49.8 Other specified cardiac arrhythmias; I27.20 Pulmonary hypertension, unspecified; G50.0 Trigeminal neuralgia; D72.819 Decreased white blood cell count, unspecified; G47.33 Obstructive sleep apnea (adult) (pediatric)
CPT/HCPCS: 36415; 82607; 82728; 82746; 83540; 83550; 84443; 85025; G0103; 82040; 82247; 82310; 82374; 82435; 82465; 82565; 82947; 83718; 84075; 84132; 84153; 84155; 84295; 84450; 84460; 84478; 84520

== ENCOUNTER 2018-05-27 01:59 | Emergency (ER) | payer MEDICARE, OTHER ==
--- NOTE | 2018-05-27 02:03 | ER Report ---
History and Physical Time Seen By : 02:02 HPI/ROS CHIEF COMPLAINT: Left facial pain, history of trigeminal more. I'll give HISTORY OF PRESENT ILLNESS: 83-year-old male with a history of trigeminal neuralgia on numerous medications for suppression who is followed by neurology presents with severe left facial pain since last evening. Patient took his regular [place] without improvement. He is complaining of 10/10 pain in his left facial nerve distribution. Patient thinks that during his cardiac ablation 3 days ago, the additional stress caused him to have exacerbation of his pain. Patient states he's been compliant on his carbamazepine, gabapentin. REVIEW OF SYSTEMS: Respiratory: No cough, no dyspnea. Cardiovascular: No chest pain, no palpitations. Gastrointestinal: No vomiting, no abdominal pain. Musculoskeletal: No back pain. Allergies: Coded Allergies: No Known Drug Allergies (Verified , 05/27/18) Home Meds Active Scripts Folic Acid (FOLIC ACID) 1 Mg Tablet, 1 MG PO QDAY, #90 TAB 1 Refill Prov:ROBIN SOLIS MD 05/15/18 Cyanocobalamin (Vitamin B-12) (Vitamin B-12) 2,000 Mcg Tablet, 1 TAB PO QDAY, #90 TAB 1 Refill Prov:ROBIN SOLIS MD 05/15/18 Pantoprazole Sodium (PANTOPRAZOLE SODIUM) 40 Mg Tablet.dr, 1 TAB PO QDAY, #90 TAB.SR 4 Refills Prov:ROBIN SOLIS MD 06/08/17 Fluticasone Prop 50 Mcg Ns (FLONASE 50 MCG NS) 16 Gm [place].susp, 2 SPRAYS NS QDAY, #1 BOT 6 Refills Prov:ROBIN SOLIS MD 03/15/17 Fluoxetine Hcl (PROZAC) 20 Mg Capsule, 1 TAB PO QDAY, #90 CAPSULE 3 Refills Prov:ROBIN SOLIS MD 02/09/16 Reported Medications Hydrocodone Bit/Acetaminophen (NORCO 5-325 TABLET) 1 Each Tablet, 1-2 EACH PO Q6H PRN for PAIN, #20 TAB 05/04/17 Docusate Sodium (COLACE) 100 Mg Capsule, 100 MG PO BID, #30 CAPSULE 05/04/17 Aspirin (ASPIRIN) 81 Mg Tab.chew, 81 MG PO QDAY, TAB.CHEW 05/02/17 Alprazolam (XANAX) 0.5 Mg Tablet, 1 TAB PO BID PRN for ANXIETY, TAB 05/02/17 Rivaroxaban 20 Mg (XARELTO 20 MG) 20 Mg Tablet, 20 MG PO QDAY, TAB 05/02/17 Oxygen (OXYGEN) Inha, 2 L INH HS, L 01/14/15 Baclofen (BACLOFEN) 20 Mg Tablet, 1 TAB PO Q6H PRN for trigeminal neuralgia pain, #15 TAB 01/14/15 Carbamazepine (TEGRETOL XR) 200 Mg Tab.er.12h, 1 TAB PO TID 01/16/14 Gabapentin (GABAPENTIN) 100 Mg Capsule, 600 MG PO TID, CAPSULE 01/16/14 Past Medical/Surgical History Past Medical History Neurologic: Reports hx of: other neurologic history (Trigeminal Neuralgia; Herpes Zoster without mention Comp) HEENT: Reports hx of: hearing deficit (Cerumen impaction) recurrent sinusitis other ENT disorders (Acute Sinustitis; Deviation Nasal Septum) Cardiovascular: Reports hx of: hypertension other CV history (TIA; Chronic Pulmonary heart disease) Respiratory: Reports hx of: sleep apnea other respiratory history (Acute Bronchitis) Gastrointestinal: Reports hx of: diverticulosis (Esophagus) GERD other GI history (Reflux Esophagitis) Musculoskeletal: Reports hx of: other musculoskeletal hx (peroneal tendonitis) Hematology/oncology (M): Reports hx of: prostate cancer other hematologic history (Polycythemia, secondary) Past Surgical History HEENT: Reports hx of: tonsillectomy (childhood) Gastrointestinal: Reports hx of: hernia repair (herniorraphy Bilateral ing) Genitourinary - Male: Reports hx of: prostatectomy (Radical 1996) Musculoskeletal: Reports hx of: arthroscopy (left knee 04/2016) spinal surgery (L4-5 laminectomy 1997) Reviewed Nurses Notes: Yes Old Medical Records Reviewed: Yes Hx Smoking: Yes (QUIT 30YRS AGP) Smoking Status: Former Smoker Exposure to Second Hand Smoke?: No Hx Substance Use Disorder: No Hx Alcohol Use: No Constitutional Vital Sign - Last 24 Hours 05/27/18 05/27/18 05/27/18 05/27/18 02:03 02:03 02:29 02:30 Temp 97.5 Pulse 54 50 Resp 16 B/P (MAP) 134/78 113/56 (75) Pulse Ox 78 96 O2 Delivery Room Air Nasal Cannula O2 Flow Rate 2.0 2 05/27/18 02:45 Pulse 54 Pulse Ox 96 Physical Exam Vital signs stable, afebrile, pulse ox normal, pulse ox normal on baseline O2 General Appearance: The patient is alert, has no immediate need for airway protection and no current signs of toxicity. Moderate distress HEENT: Pupils equal and round no injection. EOMI, PERRLA, TMs normal, oropharynx without redness or exudate, dentition appears in good repair Respiratory: Chest is non tender, lungs are clear to auscultation. Cardiac: regular rate and rhythm Gastrointestinal: Abdomen is soft and non tender, no masses, bowel sounds normal. Musculoskeletal: Neck: Neck is supple and non tender. Extremities have full range of motion and are non tender. Skin: No rashes or lesions. DIFFERENTIAL DIAGNOSIS: After history and physical exam differential diagnosis was considered for headache including but not limited to subarachnoid hemorrhage, migraine headache, tension headache and infectious causes such as meningitis, pharyngitis and sinusitis. Additionally, trigeminal neuralgia, neuropathy. [place] dental pain Medical Decision Making ED Course/Re-evaluation ED Course Patient was admitted to an examination room. H&P was done. The differential diagnosis was considered. Patient with acute exacerbation of his trigeminal neuralgia. Likely exacerbated by his recent ablation of his arrhythmia. Patient was medicated with Dilaudid 2 mg orally. He was observed for one hour. His pain resolved. He was discharged home with a take home pack of Dilaudid 2 mg, should he have any recurrence of his pain. He is advised to follow-up with his primary care doctor regarding further treatment of his trigeminal neuralgia. Decision to Disposition Date: May 27, 2018 Decision to Disposition Time: 03:01 Depart Departure Latest Vital Signs Vital Signs Date Time Temp Pulse Resp B/P (MAP) Pulse Ox O2 Delivery O2 Flow Rate FiO2 05/27/18 02:45 54 96 05/27/18 02:30 113/56 (75) 05/27/18 02:29 Nasal Cannula 2 05/27/18 02:03 97.5 16 Impression: Primary Impression: Trigeminal neuralgia Condition: Improved Disposition: HOME OR SELF-CARE Referrals: ROBIN SOLIS MD (PCP) Patient Instructions: Trigeminal Neuralgia (ED) Additional Instructions: Follow-up with your primary care early next week ЕЛЕНА MARIO DO May 27, 2018 02:03
[2018-05-27] MEDS ORDERED: HYDROmorphone HCL 2 MG TAB PO ONE (02:20)
[2018-05-27 02:30] VITALS: BP 113/56
[2018-05-27] MEDS ORDERED: HYDROmorphone 2 MG TAB TH 2 TAB/BOTTLE PO ONE (03:00)
== END 2018-05-27 03:10 | disposition home or self-care (01) ==
LOC: ER 02:12
DX: G50.0 Trigeminal neuralgia (principal)
CPT/HCPCS: 99283; A9270

== ENCOUNTER 2018-07-01 01:24 | Emergency (ER) | payer MEDICARE, OTHER ==
--- NOTE | 2018-07-01 01:28 | ER Report ---
History and Physical Time Seen By MD: 01:28 HPI/ROS CHIEF COMPLAINT: Irregular heartbeat HISTORY OF PRESENT ILLNESS: 83-year-old male with a history of atrial fibrillation status post ablation on Xarelto presents with a rapid heart rate noted on his pulse ox meter. Which he states is 5 years old. Patient climbed upstairs to go to bed and noticed some chest tightness. He retired to bed and thought his heart rate was a little bit fast. Patient notes no palpitations. No diaphoresis, no nausea. Patient is chronically on O2. Especially at night. She notes no infectious symptoms, fever, chills, sore throat or rhinitis. She denies leg swelling or calf pain REVIEW OF SYSTEMS: Respiratory: No cough, no dyspnea. Cardiovascular: No chest pain, no palpitations. Gastrointestinal: No vomiting, no abdominal pain. Musculoskeletal: No back pain. Allergies: Coded Allergies: No Known Drug Allergies (Verified , 05/27/18) Home Meds Active Scripts Oxygen (OXYGEN) Inha, 2 L INH HS, #2 L Patient uses 2L Oxygen/NC @ Bedtime Prov:ROBIN SOLIS MD 06/14/18 Fluticasone Prop 50 Mcg Ns (FLONASE 50 MCG NS) 16 Gm [place].susp, 2 SPRAYS NS QDAY, #1 BOT 6 Refills Prov:ROBIN SOLIS MD 06/12/18 Folic Acid (FOLIC ACID) 1 Mg Tablet, 1 MG PO QDAY, #90 TAB 1 Refill Prov:ROBIN SOLIS MD 05/15/18 Cyanocobalamin (Vitamin B-12) (Vitamin B-12) 2,000 Mcg Tablet, 1 TAB PO QDAY, #90 TAB 1 Refill Prov:ROBIN SOLIS MD 05/15/18 Pantoprazole Sodium (PANTOPRAZOLE SODIUM) 40 Mg Tablet.dr, 1 TAB PO QDAY, #90 TAB.SR 4 Refills Prov:ROBIN SOLIS MD 06/08/17 Fluoxetine Hcl (PROZAC) 20 Mg Capsule, 1 TAB PO QDAY, #90 CAPSULE 3 Refills Prov:ROBIN SOLIS MD 02/09/16 Reported Medications Hydrocodone Bit/Acetaminophen (NORCO 5-325 TABLET) 1 Each Tablet, 1-2 EACH PO Q6H PRN for PAIN, #20 TAB 05/04/17 Docusate Sodium (COLACE) 100 Mg Capsule, 100 MG PO BID, #30 CAPSULE 05/04/17 Aspirin (ASPIRIN) 81 Mg Tab.chew, 81 MG PO QDAY, TAB.CHEW 05/02/17 Alprazolam (XANAX) 0.5 Mg Tablet, 1 TAB PO BID PRN for ANXIETY, TAB 05/02/17 Rivaroxaban 20 Mg (XARELTO 20 MG) 20 Mg Tablet, 20 MG PO QDAY, TAB 05/02/17 Oxygen (OXYGEN) Inha, 2 L INH HS, L 01/14/15 Baclofen (BACLOFEN) 20 Mg Tablet, 1 TAB PO Q6H PRN for trigeminal neuralgia pain, #15 TAB 01/14/15 Carbamazepine (TEGRETOL XR) 200 Mg Tab.er.12h, 1 TAB PO TID 01/16/14 Gabapentin (GABAPENTIN) 100 Mg Capsule, 600 MG PO TID, CAPSULE 01/16/14 Past Medical/Surgical History Past Medical History Neurologic: Reports hx of: other neurologic history (Trigeminal Neuralgia; Herpes Zoster without mention Comp) HEENT: Reports hx of: hearing deficit (Cerumen impaction) recurrent sinusitis other ENT disorders (Acute Sinustitis; Deviation Nasal Septum) Cardiovascular: Reports hx of: hypertension other CV history (TIA; Chronic Pulmonary heart disease) Respiratory: Reports hx of: sleep apnea other respiratory history (Acute Bronchitis) Gastrointestinal: Reports hx of: diverticulosis (Esophagus) GERD other GI history (Reflux Esophagitis) Musculoskeletal: Reports hx of: other musculoskeletal hx (peroneal tendonitis) Hematology/oncology (M): Reports hx of: prostate cancer other hematologic history (Polycythemia, secondary) Past Surgical History HEENT: Reports hx of: tonsillectomy (childhood) Gastrointestinal: Reports hx of: hernia repair (herniorraphy Bilateral ing) Genitourinary - Male: Reports hx of: prostatectomy (Radical 1996) Musculoskeletal: Reports hx of: arthroscopy (left knee 04/2016) spinal surgery (L4-5 laminectomy 1997) Reviewed Nurses Notes: Yes Reviewed Nurses Notes: Yes Old Medical Records Reviewed: Yes Hx Smoking: Yes (QUIT 30YRS AGP) Smoking Status: Former Smoker Exposure to Second Hand Smoke?: No Hx Substance Use Disorder: No Hx Alcohol Use: No Constitutional Vital Sign - Last 24 Hours 07/01/18 07/01/18 07/01/18 3/17/19 01:29 01:33 01:50 01:54 Temp 97.8 Pulse 100 100 Resp 16 10 B/P (MAP) 154/100 (118) 154/100 Pulse Ox 79 96 O2 Delivery Room Air O2 Flow Rate 3.0 07/01/18 07/01/18 07/01/18 02:04 02:24 02:30 Pulse 99 Resp 9 B/P (MAP) 134/88 (103) 130/85 (100) Pulse Ox 95 Physical Exam Vital signs stable, afebrile, pulse ox normal General Appearance: The patient is alert, has no immediate need for airway protection and no current signs of toxicity. No acute distress, skin warm, dry, pink HEENT: Pupils equal and round no injection. TMs normal, oropharynx without redness or exudate, mucous. Membranes are moist Respiratory: Chest is non tender, lungs are clear to auscultation. Cardiac: regular rate and rhythm Gastrointestinal: Abdomen is soft and non tender, no masses, bowel sounds normal. Musculoskeletal: Neck: Neck is supple and non tender. Extremities have full range of motion and are non tender. Skin: No rashes or lesions. DIFFERENTIAL DIAGNOSIS: After history and physical exam differential diagnosis was considered for chest pain including but not limited to myocardial ischemia, pericarditis pulmonary embolus, chest wall pain, pleural inflammation and pulmonary infectious causes. Medical Decision Making Data Points Result Diagram: 07/01/18 0148 07/01/18 0148 Laboratory Hematology Test 07/01/18 01:48 Red Blood Count 4.07 M/uL (4.00-5.60) Mean Corpuscular Volume 102.8 fL (80.0-96.0) Mean Corpuscular Hemoglobin 35.8 pg (26.0-33.0) Mean Corpuscular Hemoglobin Concent 34.8 g/dL (32.0-36.0) Red Cell Distribution Width 14.3 % (11.5-14.5) Mean Platelet Volume 7.9 fL (7.2-11.1) Neutrophils (%) (Auto) 58.1 % (39.4-72.5) Lymphocytes (%) (Auto) 32.5 % (17.6-49.6) Monocytes (%) (Auto) 7.1 % (4.1-12.4) Eosinophils (%) (Auto) 1.6 % (0.4-6.7) Basophils (%) (Auto) 0.7 % (0.3-1.4) Nucleated RBC Relative Count (auto) 0.2 /100WBC Neutrophils # (Auto) 1.3 K/uL (2.0-7.4) Lymphocytes # (Auto) 0.7 K/uL (1.3-3.6) Monocytes # (Auto) 0.2 K/uL (0.3-1.0) Eosinophils # (Auto) 0.0 K/uL (0.0-0.5) Basophils # (Auto) 0.0 K/uL (0.0-0.1) Nucleated RBC Absolute Count (auto) 0.00 K/uL Sodium Level 141 mmol/L (137-145) Potassium Level 4.0 mmol/L (3.5-5.0) Chloride Level 104 mmol/L (98-107) Carbon Dioxide Level 32 mmol/L (22-30) Blood Urea Nitrogen 21 mg/dl (9-21) Creatinine 0.80 mg/dl (0.66-1.25) Glomerular Filtration Rate Calc > 60.0 Random Glucose 96 mg/dl (75-110) Calcium Level 8.8 mg/dl (8.4-10.2) Total Bilirubin 0.4 mg/dl (0.2-1.3) Aspartate Amino Transf (AST/SGOT) 24 U/L (0-35) Alanine Aminotransferase (ALT/SGPT) 23 U/L (0-56) Alkaline Phosphatase 106 U/L (0-126) Troponin I < 0.012 ng/ml B-Type Natriuretic Peptide 118 pg/ml (0-100) Total Protein 6.6 g/dl (6.3-8.2) Albumin 4.0 g/dl (3.5-5.0) Chemistry Test 07/01/18 01:48 White Blood Count 2.3 k/uL (4.5-11.0) Red Blood Count 4.07 M/uL (4.00-5.60) Hemoglobin 14.6 g/dL (14.0-18.0) Hematocrit 41.8 % (42.0-52.0) Mean Corpuscular Volume 102.8 fL (80.0-96.0) Mean Corpuscular Hemoglobin 35.8 pg (26.0-33.0) Mean Corpuscular Hemoglobin Concent 34.8 g/dL (32.0-36.0) Red Cell Distribution Width 14.3 % (11.5-14.5) Platelet Count 136 K/uL (150-450) Mean Platelet Volume 7.9 fL (7.2-11.1) Neutrophils (%) (Auto) 58.1 % (39.4-72.5) Lymphocytes (%) (Auto) 32.5 % (17.6-49.6) Monocytes (%) (Auto) 7.1 % (4.1-12.4) Eosinophils (%) (Auto) 1.6 % (0.4-6.7) Basophils (%) (Auto) 0.7 % (0.3-1.4) Nucleated RBC Relative Count (auto) 0.2 /100WBC Neutrophils # (Auto) 1.3 K/uL (2.0-7.4) Lymphocytes # (Auto) 0.7 K/uL (1.3-3.6) Monocytes # (Auto) 0.2 K/uL (0.3-1.0) Eosinophils # (Auto) 0.0 K/uL (0.0-0.5) Basophils # (Auto) 0.0 K/uL (0.0-0.1) Nucleated RBC Absolute Count (auto) 0.00 K/uL Glomerular Filtration Rate Calc > 60.0 Calcium Level 8.8 mg/dl (8.4-10.2) Total Bilirubin 0.4 mg/dl (0.2-1.3) Aspartate Amino Transf (AST/SGOT) 24 U/L (0-35) Alanine Aminotransferase (ALT/SGPT) 23 U/L (0-56) Alkaline Phosphatase 106 U/L (0-126) Troponin I < 0.012 ng/ml B-Type Natriuretic Peptide 118 pg/ml (0-100) Total Protein 6.6 g/dl (6.3-8.2) Albumin 4.0 g/dl (3.5-5.0) EKG/Imaging EKG Interpretation 12 lead EKG: Rhythm: normal sinus rhythm with first-degree AV block [place]: Left axis deviation QRS: QT prolongation ST segments: Nonspecific ST-T wave changes, comparison to previous EKG previously present. PVCs are no longer present. Imaging X-ray: Single view chest x-ray was obtained. I viewed the images myself on the PACS system. My interpretation of the images is: No infiltrate, no effusion, normal mediastinum, no change on comparison to previous chest x-ray 06/26/17. The radiologist interpretation had no clinically significant variation from this interpretation. ED Course/Re-evaluation Clinical Indication for ER IV: IV Access ED Course Patient was minute to an examination room. H&P was done. The differential diagnoses was considered. Patient presents with irregular heartbeat and some chest tightness. Patient has long history of complex medical problems including atrial fibrillation, status post ablation. Patient's EKG shows no evidence of ischemia or changes compared to his previous EKG. His diagnostic studies are unremarkable. His chest x-ray is negative. 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 Patient has an event recorder that can be interrogated. Patient advised to follow-up with his primary care doctor Harpreet this next week. Decision to Disposition Date: Jul 01, 2018 Decision to Disposition Time: 02:43 Depart Departure Latest Vital Signs Vital Signs Date Time Temp Pulse Resp B/P (MAP) Pulse Ox O2 Delivery O2 Flow Rate FiO2 07/01/18 02:30 130/85 (100) 07/01/18 02:24 99 9 95 07/01/18 01:50 3.0 07/01/18 01:33 97.8 Room Air Impression: Primary Impression: Chest tightness Condition: Improved Disposition: HOME OR SELF-CARE Referrals: ROBIN SOLIS MD (PCP) Patient Instructions: Chest Pain (ED) Additional Instructions: Follow-up with your primary care physician if unimproved in 2-3 days ЕЛЕНА MARIO DO Jul 01, 2018 01:28
--- NOTE | 2018-07-01 02:11 | EKG ---
[place] [facility] [place] CARMEN PERRY : [id number] MR: [id number] V: [id number] EXAM DATE: ORDERING PHYSICIAN: ЕЛЕНА MARIO TECHNOLOGIST: HERMAN Test Reason : CHEST TIGHTNESS Blood Pressure : / mmHG Vent. Rate : 100 BPM Atrial Rate : 125 BPM P-R Int : 000 ms QRS Dur : 100 ms QT Int : 394 ms P-R-T Axes : 000 -41 055 degrees QTc Int : 508 ms Sinus rhythm with 1st degree AV block Left axis deviation Nonspecific ST abnormality Prolonged QT Abnormal ECG When compared with ECG of 02-MAY-2017 16:10, premature ventricular complexes is no longer present Confirmed by MAIK FUNEZ ([id number]) on 07/01/2018 6:54:01 AM Referred By: SHELBI Confirmed By:MAIK FUNEZ
[2018-07-01 02:13] LABS: PLATELET COUNT, AUTOMATED 136 K/uL (150-450)
[2018-07-01 02:30] VITALS: BP 130/85
--- NOTE | 2018-07-01 02:32 | RADIOLOGY IMAGING REPORT ---
FACILITY: [facility] - [place] PATIENT NAME: Stanton Wells : 1935 MR: [id number] V: [id number] EXAM DATE: ORDERING PHYSICIAN: ЕЛЕНА MARIO TECHNOLOGIST: [place] [facility] [place] Patient: Stanton Wells : 1935 Visit/Account:[id number] Date of Sevice: 07/01/2018 CHEST SINGLE AP HISTORY: Chest pain. COMPARISON: 06/16/2017. FINDINGS: Lines/tubes: Stable electronic device projecting over the heart. Lungs/pleura: Negative. Heart: Negative. Mediastinum: Negative. Bony structures/body wall: Negative. IMPRESSION: No acute cardiopulmonary process. Report Dictated By: Nixon Mckeon MD at 07/01/2018 2:25 AM Report E-Signed By: Nixon Mckeon MD at 07/01/2018 2:28 AM [id number]
== END 2018-07-01 03:01 | disposition home or self-care (01) ==
LOC: ER 01:37
DX: R07.89 Other chest pain (principal); Z79.01 Long term (current) use of anticoagulants
CPT/HCPCS: 71045; 82040; 82247; 82310; 82374; 82435; 82565; 82947; 83880; 84075; 84132; 84155; 84295; 84450; 84460; 84484; 84520; 85025; 93005; 99284

== ENCOUNTER → 2018-07-10 | Outpatient (CLI) | payer MEDICARE, OTHER ==
--- NOTE | 2018-07-10 14:27 | EKG ---
FACILITY: [facility] PATIENT NAME: CARMEN PERRY : [id number] MR: [id number] V: [id number] EXAM DATE: ORDERING PHYSICIAN: KONRAD VILLATORO TECHNOLOGIST: SIMRAN Barnett Reason : SVT Blood Pressure : / mmHG Vent. Rate : 065 BPM Atrial Rate : 065 BPM P-R Int : 172 ms QRS Dur : 102 ms QT Int : 450 ms P-R-T Axes : 081 -35 021 degrees QTc Int : 468 ms Sinus rhythm with sinus arrhythmia with occasional premature ventricular complexes Left axis deviation No ST-T abnormalities When compared with ECG of 01-JUL-2018 01:47, premature ventricular complexes are now present MS interval has increased Vent. rate has decreased BY 35 BPM QT has shortened Confirmed by FELICITY DE LA PAZ ([id number]) on 07/10/2018 6:53:56 PM Referred By: KORNAD VILLATORO Confirmed By:FELICITY DE LA PAZ
== END ==
LOC: RESP 13:53
PROVIDERS: ATTEND Internal Medicine Clinical Cardiac Electrophysiology
DX: I47.1 Supraventricular tachycardia (principal)
CPT/HCPCS: 93005

== ENCOUNTER → 2018-09-05 | Outpatient (CLI) | payer MEDICARE, OTHER ==
--- NOTE | 2018-09-05 14:31 | RADIOLOGY IMAGING REPORT ---
FACILITY: [facility] PATIENT NAME: Stanton Wells : 1935 MR: [id number] V: [id number] EXAM DATE: ORDERING PHYSICIAN: ANJUM CHIN TECHNOLOGIST: Location: [facility] [place] Patient: Stanton Wells : 1935 Visit/Account:[id number] Date of Sevice: 09/05/2018 CT ABDOMEN PELVIS W/O CON HISTORY: Kidney stones TECHNIQUE: Axial images acquired through the abdomen/pelvis. Coronal and sagittal reformatting also performed. No IV contrast administered.Dose Lowering Technique One of the following dose optimization techniques was utilized in the performance of this exam: Autom ated exposure control; adjustment of the mA and/or kV according to the patient's size; or use of an i terative reconstruction technique. Specific details can be referenced in the facility's radiology C T exam operational policy. COMPARISON: August 22, 2017 FINDINGS: Visualized lung bases: Small calcified granuloma in the right lower lobe Hepatobiliary: The liver is incompletely imaged as the study was tailored towards the urinary tract. No gross abnormality of the liver seen on the supplied images Spleen: Calcified granulomas Adrenals: Negative. Pancreas: Negative. Kidneys ureters and bladder: There is a three mm nonobstructing calculus lower pole calyx of the left kidney that appears unchanged . Previously noted 2 mm calculus lower pole the right kidney no long er seen. No evidence of hydronephrosis hydroureter or ureteral calculi There is mild perinephric str anding bilaterally. 1.2 cm lower pole exophytic left renal cyst Genitalia: Numerous clips in the pelvis likely from prior prostatectomy GI: There is a moderate amount of fecal material throughout colon which can be seen with constipatio n. There Is also moderate amount of particulate material within the stomach although could be relat ed to a recent meal . There is a duodenal diverticulum extending from the third portion the duodenu m Vessels/spaces/nodes: There are mild to moderate atherosclerotic calcifications throughout the abdom en and. Bones/soft tissues: There spondylotic changes of lumbar spine Additional findings: None pertinent. IMPRESSION: Evidence of a prior granulomatous process 3 mm nonobstructing calculus lower pole calyx of the left kidney appears unchanged No other urolithiasis demonstrated. Moderate amount of fecal material throughout colon which can be seen with constipation Moderate amount of particulate material in the stomach could be related to a recent meal Additional chronic findings as described Report Dictated By: Maritza Holder MD at 09/05/2018 1:58 PM Report E-Signed By: Maritza Holder MD at 09/05/2018 2:26 PM WSN:OLGA
== END ==
LOC: CT 01:12
PROVIDERS: ATTEND Urology
DX: N20.0 Calculus of kidney (principal)
CPT/HCPCS: 74176

== ENCOUNTER → 2018-10-05 | Outpatient (CLI) | payer MEDICARE, OTHER ==
[2018-10-05 11:18] LABS: PLATELET COUNT, AUTOMATED 123 K/uL (150-450)
== END ==
LOC: LAB 11:03
PROVIDERS: ATTEND Surgery
DX: D72.819 Decreased white blood cell count, unspecified (principal)
CPT/HCPCS: 36415; 85025

== ENCOUNTER 2018-11-02 16:00 | Outpatient (RCR) | payer MEDICARE, OTHER ==
[2018-08-24 10:28] VITALS: BP 121/68
--- NOTE | 2018-08-24 12:33 | ONCOLOGY CONSULTATION ---
EVENT DATE: August 24, 2018 REFERRING PHYSICIAN Ankur Mullins MD REASON FOR CONSULTATION Evaluation and management of leukopenia. HEMATOLOGY HISTORY Patient is an 83-year old male who visited the emergency room recently for tachycardia and the patient was sent to Dr. Mullins for followup after that. During the evaluation, patient was found to have leukopenia. His white count was 2.3, hemoglobin 14.6, hematocrit 41.8, platelet 156,000 and MCV 102. His ANC was 1.3, ALC 0.7 and absolute monocytic count 0.2. Patient had in the past some blood work which showed deficiency of folic acid 5.4. Vitamin B12 was low normal at 256. Ferritin was normal at 41. Iron saturation was 48.7. Serum iron 136. TIBC was 279. Patient denies any constitutional symptoms. PAST MEDICAL HISTORY 1. Sinusitis. 2. Hypertension. 3. TIA. 4. Sleep apnea. 5. GERD. 6. Esophageal diverticulosis. 7. Peroneal tendinitis. 8. Prostate cancer. 9. Secondary polycythemia. PAST SURGICAL HISTORY 1. Tonsillectomy. 2. Bilateral inguinal hernia repair. 3. Laminectomy in 1997 at lumber 4-5. 4. Left knee arthroscopic surgery in 1996. FAMILY HISTORY Father had prostate cancer and a brother under evaluation for prostate cancer. SOCIAL HISTORY Patient is . He has one son and two stepchildren. He is retired from [employer]. He quit smoking in 1969 after 1/2 pack a day for only five years. He was drinking hard liquor in the past but currently he is drinking about one to two beer a day. CURRENT MEDICATIONS 1. Oxygen 2L/minute at bedtime. 2. Folic acid 1 mg daily. 3. Pantoprazole 40 mg daily. 4. Prozac 20 mg daily. 5. Flonase 50 mcg nasal spray. 6. Cameron 5/325 one to two tablets every six hours p.r.n. pain. 7. Aspirin 81 mg daily. 8. Xanax 0.5 mg twice daily as needed for anxiety. 9. Xarelto 20 mg daily. 10. Baclofen 20 mg every six hours for trigeminal neuralgia. 11. Tegretol 200 mg one tablet three times a day. 12. Gabapentin 600 mg three times daily. ALLERGIES No known drug allergies. REVIEW OF SYSTEMS CONSTITUTIONAL: No appetite or weight change. No fever, chills or sweating. No recent infection. HEENT: Ears: No tinnitus or hearing problem. Nose: No nasal discharge or epistaxis. Throat: No sore throat or mouth ulcers. Eyes: No diplopia or visual changes. RESPIRATORY: No shortness of breath. No cough, expectoration or hemoptysis. CARDIOVASCULAR: No chest pain, orthopnea, or paroxysmal nocturnal dyspnea (PND). No edema. No palpitations. GASTROINTESTINAL: No nausea or vomiting. No diarrhea or constipation. No change in bowel movements. No heartburn or swallowing difficulties. No abdominal pain. No jaundice. No hematemesis, melena or rectal bleeding. GENITOURINARY: Patient has had heavy periods for years, and she has been seen by a gas pumping station operator, and she was offered uterine ablation, but the patient refused the procedure. As per patient, she has had heavy periods for a total of seven days every month. MUSCULOSKELETAL: No pain in the muscles, joints or bones. NEUROLOGICAL: He has occasional headache. HEMATOLOGIC/LYMPHATIC: He has occasional fatigue. SKIN: No skin rash or lumps. PSYCHIATRIC: No anxiety or depression. PHYSICAL EXAMINATION GENERAL: Looks stable. Well-developed, well-nourished, and in no acute distress. VITAL SIGNS: Blood pressure 124/68, pulse 62 per minute, respirations 16 per minute, temperature 97, pulse ox 83% on room air. Patient refused to way oxygen during daytime. HEENT: Head: Atraumatic. No sinus tenderness to palpation. Eyes: No icterus or conjunctivitis. Mouth and Throat: No oral thrush or mucositis. NECK: Supple. No cervical or supraclavicular lymphadenopathy. LUNGS: Clear to auscultation and percussion bilaterally. HEART: Regular rate and rhythm. No gallops, murmurs, clicks or rubs. ABDOMEN: Soft and lax. No tenderness. No hepatosplenomegaly. No masses. EXTREMITIES: No cyanosis, clubbing or edema. LYMPHATICS: No peripheral lymphadenopathy. NEUROLOGICAL: Conscious, alert and oriented x3. No focal motor or sensory deficits. PSYCHIATRIC: Mood and affect appear normal. SKIN: No skin rash, bruise or purpuric eruption. ASSESSMENT Pancytopenia with leukopenia and thrombocytopenia. Could be due to nutritional deficiencies like vitamin B12 and folic acid deficiency and patient had folic acid deficiency in the past and is currently on folic acid supplement. Autoimmune also could be a possibility but bone marrow disease could be also a possibility, especially myelodysplastic syndrome, which is common in his age group. I am planning to run some tests including CBC, retic count, iron studies with ferritin, B12 and methylmalonic acid assay, folic acid and red cell folate. I will check also serum protein immune electrophoresis, EPO level and haptoglobin level. I will consider bone marrow aspiration biopsy if bone marrow disease is suspected after the blood work is done. I explained that to the patient and his and they are agreeable with the plan of management. PLAN 1. CBC. 2. Retic count. 3. Iron studies with ferritin. 4. B12 and methylmalonic acid assay. 5. Serum folate and red cell folate. 6. Serum protein electrophoresis. 7. EPO level. 8. Haptoglobin level. 9. Consider bone marrow biopsy. 10. Patient to return after the above for further evaluation and management. 11. Patient to contact us for any new concerns or complaints. HUGH
[2018-08-27 10:16] VITALS: BP 136/84
[2018-08-27 10:21] LABS: PLATELET COUNT, AUTOMATED 127 K/uL (150-450)
[2018-09-07 15:26] VITALS: BP 122/61
--- NOTE | 2018-09-08 09:28 | [facility] ONCOLOGY NOTE ---
EVENT DATE: September 07, 2018 DIAGNOSES Pancytopenia with neutropenia and thrombocytopenia. CHIEF COMPLAINT Patient is here today to discuss the results of his blood work for his pancytopenia. HEMATOLOGY HISTORY Patient is an 83-year old male who visited the emergency room recently for tachycardia and the patient was sent to Dr. Mullins for followup after that. During the evaluation, patient was found to have leukopenia. His white count was 2.3, hemoglobin 14.6, hematocrit 41.8, platelet 156,000 and MCV 102. His ANC was 1.3, ALC 0.7 and absolute monocytic count 0.2. Patient had in the past some blood work which showed deficiency of folic acid 5.4. Vitamin B12 was low normal at 256. Ferritin was normal at 41. Iron saturation was 48.7. Serum iron 136. TIBC was 279. Patient denies any constitutional symptoms. Repeat CBC showed white count 1.6, hemoglobin 14.6, hematocrit 42.1, platelets 127,000 and MCV 103.3. ANC 1, ALC 0.5. Haptoglobin was less than 10. Absolute retic was 0.0573. Chem panel showed carbon dioxide 33. LDH was normal at 441. B12 491. Methylmalonic acid essay 0.12. Folate was more than 22.3 and red cell folate was 742. EPO level was high at 51. Serum iron 119. Iron saturation 42.3, TIBC 281 and ferritin 36. HISTORY OF PRESENT ILLNESS Patient is here today for followup of his pancytopenia with neutropenia and thrombocytopenia. Patient really is doing very well currently except for some fatigue. Other than that, he is stable. PAST MEDICAL HISTORY 1. Sinusitis. 2. Hypertension. 3. TIA. 4. Sleep apnea. 5. GERD. 6. Esophageal diverticulosis. 7. Peroneal tendinitis. 8. Prostate cancer. 9. Secondary polycythemia. PAST SURGICAL HISTORY 1. Tonsillectomy. 2. Bilateral inguinal hernia repair. 3. Laminectomy in 1997 at [place] 4-5. 4. Left knee arthroscopic surgery in 1996. FAMILY HISTORY Father had prostate cancer and a brother under evaluation for prostate cancer. SOCIAL HISTORY Patient is . He has one son and two stepchildren. He is retired from [employer]. He quit smoking in 1969 after 1/2 pack a day for only five years. He was drinking hard liquor in the past but currently he is drinking about one to two beer a day. CURRENT MEDICATIONS 1. Oxygen 2L/minute at bedtime. 2. Folic acid 1 mg daily. 3. Pantoprazole 40 mg daily. 4. Prozac 20 mg daily. 5. Flonase 50 mcg nasal spray. 6. [place] 5/325 one to two tablets every six hours p.r.n. pain. 7. Aspirin 81 mg daily. 8. Xanax 0.5 mg twice daily as needed for anxiety. 9. Xarelto 20 mg daily. 10. Baclofen 20 mg every six hours for trigeminal neuralgia. 11. Tegretol 200 mg one tablet three times a day. 12. Gabapentin 600 mg three times daily. ALLERGIES No known drug allergies. REVIEW OF SYSTEMS CONSTITUTIONAL: No appetite or weight change. No fever, chills or sweating. No recent infection. HEENT: Ears: No tinnitus or hearing problem. Nose: No nasal discharge or epistaxis. Throat: No sore throat or mouth ulcers. Eyes: No diplopia or visual changes. RESPIRATORY: No shortness of breath. No cough, expectoration or hemoptysis. CARDIOVASCULAR: No chest pain, orthopnea, or paroxysmal nocturnal dyspnea (PND). No edema. No palpitations. GASTROINTESTINAL: No nausea or vomiting. No diarrhea or constipation. No change in bowel movements. No heartburn or swallowing difficulties. No abdominal pain. No jaundice. No hematemesis, melena or rectal bleeding. GENITOURINARY: Patient has had heavy periods for years, and she has been seen by a batch blender, and she was offered uterine ablation, but the patient refused the procedure. As per patient, she has had heavy periods for a total of seven days every month. MUSCULOSKELETAL: No pain in the muscles, joints or bones. NEUROLOGICAL: He has occasional headache. HEMATOLOGIC/LYMPHATIC: He is weak, tired and fatigued. SKIN: No skin rash or lumps. PSYCHIATRIC: No anxiety or depression. PHYSICAL EXAMINATION GENERAL: Looks stable. Well-developed, well-nourished, and in no acute distress. VITAL SIGNS: Blood pressure 122/61, pulse 70 per minute, respirations 16 per minute, temperature 97, pulse ox 80% on room air. HEENT: Head: Atraumatic. No sinus tenderness to palpation. Eyes: No icterus or conjunctivitis. Mouth and Throat: No oral thrush or mucositis. NECK: Supple. No cervical or supraclavicular lymphadenopathy. LUNGS: Clear to auscultation and percussion bilaterally. HEART: Regular rate and rhythm. No gallops, murmurs, clicks or rubs. ABDOMEN: Soft and lax. No tenderness. No hepatosplenomegaly. No masses. EXTREMITIES: No cyanosis, clubbing or edema. LYMPHATICS: No peripheral lymphadenopathy. NEUROLOGICAL: Conscious, alert and oriented x3. No focal motor or sensory deficits. PSYCHIATRIC: Mood and affect appear normal. SKIN: No skin rash, bruise or purpuric eruption. DIAGNOSTIC DATA CBC shows white count 1.6, hemoglobin 14.6, hematocrit 42.1, platelets 127,000. MCV 103.3. ANC 1, ALC 0.5. Haptoglobin less than 10. Absolute retic 0.0573. Carbon dioxide 33, LDH 441, B12 491. Methylmalonic acid assay 0.12. Folate more than 22.3. Red cell folate 742. EPO 51. Serum iron 119. Ferritin 36. Iron saturation 42.3, TIBC 281. ASSESSMENT Pancytopenia with leukopenia and thrombocytopenia. This could be due to nutritional deficiencies like B12 folic acid deficiency and patient had folic acid deficiency in the past but he is currently on supplement and his B12 and folate levels currently are normal. Iron studies also are normal. His haptoglobin was less than 10, suggestive of hemolytic anemia but it is compensated as his hemoglobin is normal at 15.6. I advised the patient to continue folic acid currently. Erythropoietin level was high at 51. I am planning to proceed with bone marrow aspiration biopsy and I will check also direct Sonal test and antineutrophil antibodies to rule out the possibility of autoimmune pathology. I explained that to the patient. He is agreeable with the plan of management. PLAN 1. Bone marrow aspiration biopsy. We will refer to Dr. Patel to do that. 2. Antineutrophil antibody. 3. Direct Sonal test. 4. Patient to return two weeks after biopsy for further evaluation and management. 5. Patient to contact us for any new concerns or complaints. HUGH
[2018-10-16 14:14] VITALS: BP 136/79
--- NOTE | 2018-10-18 20:09 | ONCOLOGY FOLLOW UP NOTE ---
EVENT DATE: October 16, 2018 CHIEF COMPLAINT Followup for pancytopenia. HISTORY OF PRESENT ILLNESS Patient is an 83-year-old male who was seen today in followup. Overall, he continues to do well. He is here to discuss the results of his bone marrow biopsy. He relates a history of recurrent sinusitis, but last infection was several months ago. He has some low back discomfort with loss of balance occasionally. He also describes some intermittent dysphagia. He sees a neurologist for trigeminal neuralgia, which has been fairly well controlled. HEMATOLOGY HISTORY Patient is an 83-year-old male who was referred to our clinic with neutropenia and thrombocytopenia. He was noted to have folic acid deficiency in the past with a low-normal B12. Ferritin was normal at 41, iron saturation 48.7, serum iron 136. He has not had an issue with recurrent infections; however, CBC showed ongoing leukopenia/neutropenia. Haptoglobin was less than 10. Methylmalonic acid assay was 0.12. Erythropoietin level was high at 51. Bone marrow biopsy on 10/05/18 showed normocellular marrow with trilineage hematopoiesis. Adequate iron stores with rare ring sideroblasts and mild dysmegakaryopoiesis. MEDICAL HISTORY 1. Sinusitis. 2. Hypertension. 3. TIA. 4. Sleep apnea. 5. GERD. 6. Esophageal diverticulosis. 7. Peroneal tendinitis. 8. Prostate cancer. 9. Secondary polycythemia. 10. Trigeminal neuralgia. SURGICAL HISTORY 1. Tonsillectomy. 2. Bilateral inguinal hernia repair. 3. Laminectomy, L4-L5, 1997. 4. Left knee arthroscopic surgery, 1996. 5. Cardiac ablation, August 2017. FAMILY HISTORY Father had prostate cancer. Brother was undergoing testing for prostate cancer. SOCIAL HISTORY Patient is . He has one son and two stepchildren. He retired from the [employer]. He quit smoking in 1970 after half a pack a day for only five years. He drank hard liquor in the past, but is now drinking one to two beers a day. MEDICATIONS 1. Oxygen 2L per minute at bedtime. 2. Folic acid 1 mg daily. 3. Pantoprazole 40 mg daily. 4. Prozac 20 mg daily. 5. Flonase. 6. [place] 5/325 mg, one to two tablets every six hours p.r.n. 7. Aspirin 81 mg daily. 8. Xanax 0.5 mg b.i.d. p.r.n. 9. Xarelto 20 mg daily. 10. Baclofen 20 mg every six hours p.r.n. trigeminal neuralgia. 11. Tegretol 200 mg t.i.d. 12. Gabapentin 600 mg t.i.d. ALLERGIES No known drug allergies. REVIEW OF SYSTEMS A 12-point review of systems is performed and is negative except as stated above. PHYSICAL EXAMINATION VITAL SIGNS: Weight 76.2 kg, BP 136/79, P 72, R 16, temp 98.4, O2 sat 90%. GENERAL: Patient is a well-developed, well-nourished male in no acute distress. HEAD: Normocephalic, atraumatic. EYES: Sclerae anicteric. MOUTH: Moist mucous membranes. LUNGS: Clear bilaterally. CARDIOVASCULAR: Heart rate regular, 72 per minute. EXTREMITIES: No edema. NEURO: Nonfocal. LABORATORY No lab today. IMPRESSION The patient is an 83-year-old male with leukopenia and thrombocytopenia. He has a history of folic acid deficiency but is currently on supplement, and B12 and folate levels are normal. Iron studies are normal. Haptoglobin was less than 10, suggestive of a hemolytic anemia, but it is compensated, as his hemoglobin is normal at 15.6. Bone marrow biopsy was negative for malignancy or blood disorders. PLAN 1. Leukopenia/thrombocytopenia. Bone marrow biopsy on 10/05/18 revealed normocellular marrow with trilineage hematopoiesis. Adequate iron stores were noted with rare ring sideroblasts. Mild dysmegakaryopoiesis was also noted. He is reassured by this result, but again, we have no reason for his leukopenia and thrombocytopenia. He is instructed to notify us if he develops any fevers or signs of infection. He will follow up with Dr. Dominguez in three weeks for continued care. CBC will be done before that visit. HUGH
[2018-11-02 16:13] VITALS: BP 127/73
--- NOTE | 2018-11-03 09:44 | [facility] ONCOLOGY NOTE ---
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 CHIEF COMPLAINT Patient is here today for followup of his low-grade myelodysplastic syndrome. HEMATOLOGY HISTORY Patient is an 83-year old male who visited the emergency room recently for tachycardia and the patient was sent to Dr. Mullins for followup after that. During the evaluation, patient was found to have leukopenia. His white count was 2.3, hemoglobin 14.6, hematocrit 41.8, platelet 156,000 and MCV 102. His ANC was 1.3, ALC 0.7 and absolute monocytic count 0.2. Patient had in the past some blood work which showed deficiency of folic acid 5.4. Vitamin B12 was low normal at 256. Ferritin was normal at 41. Iron saturation was 48.7. Serum iron 136. TIBC was 279. Patient denies any constitutional symptoms. Repeat CBC showed white count 1.6, hemoglobin 14.6, hematocrit 42.1, platelets 127,000 and MCV 103.3. ANC 1, ALC 0.5. Haptoglobin was less than 10. Absolute retic was 0.0573. Chem panel showed carbon dioxide 33. LDH was normal at 441. B12 491. Methylmalonic acid essay 0.12. Folate was more than 22.3 and red cell folate was 742. EPO level was high at 51. Serum iron 119. Iron saturation 42.3, TIBC 281 and ferritin 36. Bone marrow aspiration biopsy done on October 05, 2018 came back positive for low-grade myelodysplastic syndrome. There was slight dysplasia in the form of rare ring sideroblasts and occasional small megakaryocytes. Blasts are not increased. Cytogenetic and FISH studies are normal but the myeloid molecular profile is positive for pathogenic alteration in the TET2 and ZRSR2 genes and genomic alteration of uncertain significance in the SETBP1 gene. The morphologic and molecular findings are suggestive of low- grade myelodysplastic syndrome. His Cumulative-Revised Internal Prognostic Scoring System score is 1.5 as determined by 1 point for good cytogenetics, 0 points for less than 2% plus, 0 points for more than 10 g/dL hemoglobin, 0 points for more than 100,000 platelets and 0.5 points for less than 0.8 ANC. A score of less than or equal to 1.5 is very low risk with median survival of 8.8 years. HISTORY OF PRESENT ILLNESS Patient is here today for followup of his low-grade myelodysplastic syndrome. Patient is complaining of some back pain. He has occasional headache. He bruises easily but he is weak, tired and fatigued. PAST MEDICAL HISTORY 1. Sinusitis. 2. Hypertension. 3. TIA. 4. Sleep apnea. 5. GERD. 6. Esophageal diverticulosis. 7. Peroneal tendinitis. 8. Prostate cancer. 9. Secondary polycythemia. PAST SURGICAL HISTORY 1. Tonsillectomy. 2. Bilateral inguinal hernia repair. 3. Laminectomy in 1997 at lumber 4-5. 4. Left knee arthroscopic surgery in 1996. FAMILY HISTORY Father had prostate cancer and a brother under evaluation for prostate cancer. SOCIAL HISTORY Patient is . He has one son and two stepchildren. He is retired from [employer]. He quit smoking in 1969 after 1/2 pack a day for only five years. He was drinking hard liquor in the past but currently he is drinking about one to two beer a day. CURRENT MEDICATIONS 1. Oxygen 2L/minute at bedtime. 2. Folic acid 1 mg daily. 3. Pantoprazole 40 mg daily. 4. Prozac 20 mg daily. 5. Flonase 50 mcg nasal spray. 6. [place] 5/325 one to two tablets every six hours p.r.n. pain. 7. Aspirin 81 mg daily. 8. Xanax 0.5 mg twice daily as needed for anxiety. 9. Xarelto 20 mg daily. 10. Baclofen 20 mg every six hours for trigeminal neuralgia. 11. Tegretol 200 mg one tablet three times a day. 12. Gabapentin 600 mg three times daily. ALLERGIES No known drug allergies. REVIEW OF SYSTEMS CONSTITUTIONAL: No appetite or weight change. No fever, chills or sweating. No recent infection. HEENT: Ears: No tinnitus or hearing problem. Nose: No nasal discharge or epistaxis. Throat: No sore throat or mouth ulcers. Eyes: No diplopia or visual changes. RESPIRATORY: No shortness of breath. No cough, expectoration or hemoptysis. CARDIOVASCULAR: No chest pain, orthopnea, or paroxysmal nocturnal dyspnea (PND). No edema. No palpitations. GASTROINTESTINAL: No nausea or vomiting. No diarrhea or constipation. No change in bowel movements. No heartburn or swallowing difficulties. No abdominal pain. No jaundice. No hematemesis, melena or rectal bleeding. GENITOURINARY: Patient has had heavy periods for years, and she has been seen by a maintenance department technician, and she was offered uterine ablation, but the patient refused the procedure. As per patient, she has had heavy periods for a total of seven days every month. MUSCULOSKELETAL: He has back pain. NEUROLOGICAL: He has occasional headache. HEMATOLOGIC/LYMPHATIC: He bruises easily. He is weak, tired and fatigued. SKIN: No skin rash or lumps. PSYCHIATRIC: No anxiety or depression. PHYSICAL EXAMINATION GENERAL: Looks stable. Well-developed, well-nourished, and in no acute distress. VITAL SIGNS: Blood pressure 127/73, pulse 77 per minute, respirations 16 per minute, temperature 97, pulse ox 82% on room air. HEENT: Head: Atraumatic. No sinus tenderness to palpation. Eyes: No icterus or conjunctivitis. Mouth and Throat: No oral thrush or mucositis. NECK: Supple. No cervical or supraclavicular lymphadenopathy. LUNGS: Clear to auscultation and percussion bilaterally. HEART: Regular rate and rhythm. No gallops, murmurs, clicks or rubs. ABDOMEN: Soft and lax. No tenderness. No hepatosplenomegaly. No masses. EXTREMITIES: No cyanosis, clubbing or edema. LYMPHATICS: No peripheral lymphadenopathy. NEUROLOGICAL: Conscious, alert and oriented x3. No focal motor or sensory deficits. PSYCHIATRIC: Mood and affect appear normal. SKIN: No skin rash, bruise or purpuric eruption. ASSESSMENT Low-grade myelodysplastic syndrome with pancytopenia with leukopenia and thrombocytopenia. Bone marrow aspiration biopsy done on October 05, 2018 came back positive for slight dysplasia in the form of rare ring sideroblasts and occasional small megakaryocytes. Blasts are not increased. Cytogenic and FISH studies are normal but molecular studies show pathogenic alteration in TET2 and ZRSR2 genes and genomic alteration of uncertain significance in the SETBP1 gene. The morphologic and molecular findings are suggestive of low-grade myelodysplastic syndrome. The Revised Internal Prognostic Scoring System is 1.5 determined by 1 point for good cytogenetics, 0 points for less than 2% plus, 0 points for more than 10 g/dL hemoglobin, 0 points for more than 100,000 platelets and 0.5 points for less than 0.8 ANC. Patient is considered very low risk with median survival of 8.8 years. I talked to the patient today regarding the treatment, which will VIDAZA if he is willing to do that but the patient denies any recurrent infection currently. He would like to think about it. I advised him also regarding the neutropenic precautions and diet. Patient was advised to report to the office or to the emergency room after hours if his temperature is above 100.5. I am planning to see him again in a month with CBC, chem panel and I will check for PNH as the patient had low haptoglobin less than 10 before to be sure that the patient does not have that disease. PLAN 1. Continue followup. 2. Patient to return in one month with CBC, CMP and PNH study. 3. Patient to contact us for any new concerns or complaints. HUGH
== END 2018-11-21 ==
LOC: ONC 16:00
PROVIDERS: ATTEND Internal Medicine Hematology
DX: D61.818 Other pancytopenia (principal); D72.819 Decreased white blood cell count, unspecified; R53.83 Other fatigue; Z79.01 Long term (current) use of anticoagulants; Z79.899 Other long term (current) drug therapy; Z87.891 Personal history of nicotine dependence
CPT/HCPCS: 36415; 82607; 82668; 82728; 82746; 82747; 82784; 83010; 83540; 83550; 83615; 83921; 84165; 85025; 85045; 86334; G0463; 82040; 82247; 82310; 82374; 82435; 82565; 82947; 84075; 84132; 84155; 84295; 84450; 84460; 84520; 99212

== ENCOUNTER → 2018-11-08 | Outpatient (CLI) | payer MEDICARE, OTHER ==
--- NOTE | 2018-11-08 16:59 | RADIOLOGY IMAGING REPORT ---
FACILITY: [facility] PATIENT NAME: Stanton Wells : 1935 MR: [id number] V: [id number] EXAM DATE: ORDERING PHYSICIAN: KONRAD VILLATORO TECHNOLOGIST: Location: [facility] [place] Patient: Stanton Wells : 1935 Visit/Account:[id number] Date of Sevice: 11/08/2018 CAROTID History: Syncope Additional History: None Comparison: None A color flow Doppler duplex ultrasound scan was performed on the carotid and vertebral arteries bilalice li. Measurement of carotid stenosis is based on velocity parameters that correlate the residual internal carotid diameter with [place] Symptomatic Carotid Endarterectomy Trial (NASCET)- base d stenosis levels. Right carotid peak systolic velocities are as follows: Superior right ICA - 55 cm/sec. Mid right ICA - 50 cm/sec. Proximal right ICA - cm/sec. Right carotid bulb - 38 cm/sec. Superior right CCA - 79 cm/sec. Mid right CCA- 74 cm/sec. Inferior right CCA- 84 cm/sec. Proximal right ECA- 92 cm/sec. Mid right vertebral- 53 cm/sec. Right ICA/CCA ratio- 0.7 ( normal < 2.0 ). Findings: Right carotid Arterial Vasculature appears normal without evidence of plaque Left carotid peak systolic velocities are as follows: Superior left ICA - 88 cm/sec. Mid left ICA- 70 cm/sec. Proximal left ICA- 66 cm/sec. Left carotid bulb- 56 cm/sec. Superior left CCA- 64 cm/sec. Mid left CCA- 72 cm/sec. Inferior left CCA- 97 cm/sec. Proximal left ECA- 89 cm/sec. Mid left vertebral- 43 cm/sec. Left ICA/CCA ratio- 0.9 ( normal < 2.0). Findings: Minimal calcified plaque is seen in the carotid bulb but otherwise unremarkable. IMPRESSION: Minimal atherosclerotic disease left carotid bulb unremarkable for age. No evidence of physiologic ally significant stenosis. Report Dictated By: Lorne Hernandez MD at 11/08/2018 4:47 PM Report E-Signed By: Lorne Hernandez MD at 11/08/2018 4:52 PM WSN:[email or web address]
== END ==
LOC: US 00:16
PROVIDERS: ATTEND Internal Medicine Clinical Cardiac Electrophysiology
DX: R55 Syncope and collapse (principal)
CPT/HCPCS: 93880